=== PATIENT | female | born 1945 | race Caucasian/White ===

== ENCOUNTER 2023-10-09 11:16 | Inpatient (IN) | payer OTHER ==
[~2023-10-09] VITALS: Ht 157.5 cm; Wt 57.8 kg
[2023-10-09] MEDS ORDERED: iohexoL 350 mgI/mL, 100 ML INFUS..BTL IV ONE (11:23)
[2023-10-09 11:30] VITALS: BP_SYST 134; PULSE 68; RESP 16; TEMP 98.3; O2SAT 98
[2023-10-09 11:57] LABS: BASOPHILS % (AUTO) 0.7 % (0.0-2.0); EOSINOPHILS % (AUTO) 0.9 % (0.0-4.0); HEMATOCRIT 30.5 % (36-48); HEMOGLOBIN 10.6 g/dL (12.0-16.0); LYMPHOCYTES # (AUTO) 0.5 K/uL (1.0-5.5); MEAN CORPUSCULAR HEMOGLOBIN 33 pg (27-31); MEAN CORPUSCULAR HGB CONC 35 % (32-36); MEAN CORPUSCULAR VOLUME 94 fL (79.0-98.0); MONOCYTES # (AUTO) 0.3 K/uL (0.0-1.0); MONOCYTES % (AUTO) 7.5 % (1.7-9.3); NEUTROPHILS # (AUTO) 2.8 K/uL (1.8-7.7); NEUTROPHILS % (AUTO) 76.9 % (40.0-70.0); PLATELET COUNT (AUTO) 237 K/uL (130-430); RED BLOOD CELL COUNT(AUTO) 3.25 MIL/uL (4.2-6.2); RED CELL DISTRIBUTION WIDTH 13.9 % (9.0-15.0); WHITE BLOOD COUNT (AUTO) 3.7 K/uL (4.8-10.8)
[2023-10-09 12:15] LABS: INR 1.2 (0.8-1.2); PROTHROMBIN TIME 12.1 SECS (9.5-12.5)
[2023-10-09 12:31] LABS: ALANINE AMINOTRANSFERASE 49 U/L (12-78); ALBUMIN 2.9 g/dL (3.4-4.8); ANION GAP 7 (5-15); ASPARTATE AMINOTRANSFERASE 32 U/L (10-37); BILIRUBIN,DIRECT 0.1 mg/dL (0.0-0.3); CALCIUM 8.8 mg/dL (8.4-11.0); CARBON DIOXIDE 29 mmol/L (23-29); CHLORIDE 101 mmol/L (98-107); CREATINE KINASE, TOTAL 113 U/L (26-192); CREATININE 0.65 mg/dL (0.55-1.30); GLUCOSE 98 mg/dL (74-106); SODIUM SERUM 137 mmol/L (136-145); TOTAL BILIRUBIN 0.6 mg/dL (0.0-1.0); TOTAL PROTEIN, SERUM 6.3 g/dL (6.4-8.3); UREA NITROGEN, BLOOD 13 mg/dL (8-21)
[2023-10-09 12:32] LABS: ALCOHOL, BLOOD < 3 mg/dL (<10)
[2023-10-09] MEDS: ASPIRIN 81 MG TABLET(ECOTRIN) PO ONE (13:56)
[2023-10-09 14:18] LABS: BARBITURATE, URINE NEGATIVE (NEG <=200); BENZODIAZEPINE, URINE NEGATIVE (NEG <=150); CANNABINOID, URINE NEGATIVE (NEG <=50); COCAINE, URINE NEGATIVE (NEG <=150); METHAMPHETAMINES SCREEN,URINE NEGATIVE (NEG <=500); OPIATE, URINE NEGATIVE (NEG <=100); PHENCYCLIDINE SCREEN,URINE NEGATIVE (NEG <=25); UR TRICYCLIC ANTIDEPRESSANTS NEGATIVE (NEG <=300); URINE AMPHETAMINE NEGATIVE (NEG <=500); URINE METHADONE NEGATIVE (NEG <=200); URINE OXYCODONE SCREEN NEGATIVE (NEG <=100)
[2023-10-09] MEDS ORDERED: MUPIROCIN 2% TOPICAL OINTMENT 22 GM NS PRN (14:30)
[2023-10-09] MEDS ORDERED: ZOLPIDEM TARTRATE 5 MG TABLET PO PRN (14:30)
[2023-10-09] MEDS ORDERED: LORazepam 2 MG/ML VIAL IVP PRN (14:30)
[2023-10-09] MEDS ORDERED: NALOXONE HCL 2 MG/2 ML SYR IVP PRN ×2 (14:30)
[2023-10-09] MEDS ORDERED: ONDANSETRON HCL 4 MG/2 ML VIAL IVP PRN (14:30)
[2023-10-09] MEDS ORDERED: ACETAMINOPHEN 500 MG TABLET PO PRN (14:30)
[2023-10-09] MEDS ORDERED: MORPHINE 2 MG/ML INJ. SYRINGE IVP PRN ×2 (14:30)
[2023-10-09] MEDS: NACL 0.9% 1,000 ML IV SCH (15:02)
[2023-10-09 15:20] VITALS: BP_SYST 98; PULSE 64; RESP 18; TEMP 98; O2SAT 98
[2023-10-09 16:20] VITALS: BP_SYST 98; PULSE 64; RESP 18; TEMP 98; O2SAT 98
[2023-10-09 20:00] VITALS: BP_SYST 98; PULSE 54; RESP 18; TEMP 97.9; O2SAT 97
[2023-10-10 00:25] VITALS: BP_SYST 93; PULSE 60; RESP 15; TEMP 97.2; O2SAT 99
[2023-10-10 04:57] LABS: BASOPHILS % (AUTO) 1.1 % (0.0-2.0); EOSINOPHILS # (AUTO) 0.1 K/uL (0.0-0.4); EOSINOPHILS % (AUTO) 2.4 % (0.0-4.0); HEMATOCRIT 28.7 % (36-48); HEMOGLOBIN 10.2 g/dL (12.0-16.0); LYMPHOCYTES # (AUTO) 0.8 K/uL (1.0-5.5); MEAN CORPUSCULAR HEMOGLOBIN 33 pg (27-31); MEAN CORPUSCULAR HGB CONC 36 % (32-36); MEAN CORPUSCULAR VOLUME 93 fL (79.0-98.0); MONOCYTES # (AUTO) 0.4 K/uL (0.0-1.0); MONOCYTES % (AUTO) 9.4 % (1.7-9.3); NEUTROPHILS # (AUTO) 2.5 K/uL (1.8-7.7); NEUTROPHILS % (AUTO) 66.1 % (40.0-70.0); PLATELET COUNT (AUTO) 236 K/uL (130-430); RED CELL DISTRIBUTION WIDTH 13.8 % (9.0-15.0); WHITE BLOOD COUNT (AUTO) 3.8 K/uL (4.8-10.8)
[2023-10-10 05:00] LABS: ANION GAP 8 (5-15); CALCIUM 8.5 mg/dL (8.4-11.0); CARBON DIOXIDE 28 mmol/L (23-29); CHLORIDE 104 mmol/L (98-107); CREATININE 0.45 mg/dL (0.55-1.30); GLUCOSE 75 mg/dL (74-106); POTASSIUM 3.4 mmol/L (3.5-5.1); SODIUM SERUM 140 mmol/L (136-145); UREA NITROGEN, BLOOD 9 mg/dL (8-21)
[2023-10-10 08:00] VITALS: BP_SYST 90; PULSE 55; RESP 16; TEMP 98; O2SAT 97
[2023-10-10] MEDS ORDERED: IPRATROPIUM/ALBUTEROL SULFATE 3 ML AMPUL.NEB (DUONEB) INH PRN (09:00)
[2023-10-10] MEDS: POTASSIUM CHLORIDE 20 MEQ TABLET.ER PO PRN (09:03)
[2023-10-10] MEDS: ASPIRIN 81 MG TABLET(ECOTRIN) PO SCH (09:03)
[2023-10-10] MEDS: MAGNESIUM SULFATE 50 ML IV PRN (09:04)
[2023-10-10 09:13] VITALS: BP_SYST 93; PULSE 60; O2SAT 99
[2023-10-10 12:00] VITALS: BP_SYST 95; PULSE 81; RESP 16; TEMP 97.6; O2SAT 96
[2023-10-10] MEDS: ACETAMINOPHEN 500 MG TABLET PO PRN (12:56)
[2023-10-10] MEDS: CLOPIDOGREL BISULFATE 75 MG TABLET PO SCH (12:56)
[2023-10-10] MEDS: PIPERACILLIN/TAZO 3.375 GM in D5W 50 ML IV SCH (12:57)
[2023-10-10 16:36] VITALS: BP_SYST 106; PULSE 87; RESP 16; TEMP 97.8; O2SAT 98
[2023-10-10 20:00] VITALS: BP_SYST 108; PULSE 64; RESP 16; TEMP 98.2; O2SAT 95
[2023-10-10 23:22] LABS: BILIRUBIN,URINE NEGATIVE (NEGATIVE); BLOOD, URINE 2+ (NEGATIVE); COLOR,URINE YELLOW (YELLOW); GLUCOSE,URINE NEGATIVE (NEGATIVE); KETONES,URINE NEGATIVE (NEGATIVE); LEUKOCYTE ESTERASE ,URINE NEGATIVE (NEGATIVE); NITRITE, URINE NEGATIVE (NEGATIVE); PH,URINE 7.5 (5.0-8.0); PROTEIN URINE NEGATIVE (NEGATIVE)
[2023-10-11] VITALS (7 sets, daily range): BP systolic 97–123; PULSE 70–137; RESP 16–18; TEMP 97.9–98.4; O2SAT 95–96
[2023-10-11 00:02] LABS: BACTERIA,URINE None Seen /HPF (None Seen); CLARITY/URINE HAZY (CLEAR); WBC,URINE 0-3 /HPF (0-3)
[2023-10-11 05:14] LABS: ANION GAP 6 (5-15); CALCIUM 8.1 mg/dL (8.4-11.0); CARBON DIOXIDE 28 mmol/L (23-29); CHLORIDE 105 mmol/L (98-107); CREATININE 0.54 mg/dL (0.55-1.30); GLUCOSE 78 mg/dL (74-106); POTASSIUM 3.9 mmol/L (3.5-5.1); SODIUM SERUM 139 mmol/L (136-145); UREA NITROGEN, BLOOD 11 mg/dL (8-21)
[2023-10-11 05:26] LABS: BASOPHILS % (AUTO) 0.5 % (0.0-2.0); EOSINOPHILS # (AUTO) 0.1 K/uL (0.0-0.4); EOSINOPHILS % (AUTO) 1.7 % (0.0-4.0); HEMATOCRIT 28.4 % (36-48); HEMOGLOBIN 9.9 g/dL (12.0-16.0); LYMPHOCYTES # (AUTO) 0.8 K/uL (1.0-5.5); LYMPHOCYTES % (AUTO) 16.7 % (20.5-51.5); MEAN CORPUSCULAR HEMOGLOBIN 32 pg (27-31); MEAN CORPUSCULAR HGB CONC 35 % (32-36); MEAN CORPUSCULAR VOLUME 93 fL (79.0-98.0); MONOCYTES # (AUTO) 0.4 K/uL (0.0-1.0); MONOCYTES % (AUTO) 8.1 % (1.7-9.3); NEUTROPHILS # (AUTO) 3.7 K/uL (1.8-7.7); PLATELET COUNT (AUTO) 233 K/uL (130-430); RED BLOOD CELL COUNT(AUTO) 3.07 MIL/uL (4.2-6.2); RED CELL DISTRIBUTION WIDTH 13.6 % (9.0-15.0)
[2023-10-11] MEDS: ATORVASTATIN 20 MG TABLET PO SCH (09:00)
[2023-10-12] VITALS: BP_SYST 137; PULSE 66; RESP 18; TEMP 98; O2SAT 66
[2023-10-12 05:14] LABS: BASOPHILS % (AUTO) 0.6 % (0.0-2.0); EOSINOPHILS # (AUTO) 0.2 K/uL (0.0-0.4); EOSINOPHILS % (AUTO) 3.6 % (0.0-4.0); HEMOGLOBIN 10.9 g/dL (12.0-16.0); LYMPHOCYTES # (AUTO) 0.9 K/uL (1.0-5.5); LYMPHOCYTES % (AUTO) 20.6 % (20.5-51.5); MEAN CORPUSCULAR HEMOGLOBIN 33 pg (27-31); MEAN CORPUSCULAR HGB CONC 35 % (32-36); MEAN CORPUSCULAR VOLUME 94 fL (79.0-98.0); MONOCYTES # (AUTO) 0.4 K/uL (0.0-1.0); MONOCYTES % (AUTO) 9.4 % (1.7-9.3); NEUTROPHILS # (AUTO) 2.8 K/uL (1.8-7.7); NEUTROPHILS % (AUTO) 65.8 % (40.0-70.0); PLATELET COUNT (AUTO) 242 K/uL (130-430); RED BLOOD CELL COUNT(AUTO) 3.31 MIL/uL (4.2-6.2); RED CELL DISTRIBUTION WIDTH 13.9 % (9.0-15.0); WHITE BLOOD COUNT (AUTO) 4.2 K/uL (4.8-10.8)
[2023-10-12 06:00] LABS: ALANINE AMINOTRANSFERASE 44 U/L (12-78); ALBUMIN 2.6 g/dL (3.4-4.8); ANION GAP 10 (5-15); ASPARTATE AMINOTRANSFERASE 31 U/L (10-37); CALCIUM 8.3 mg/dL (8.4-11.0); CARBON DIOXIDE 26 mmol/L (23-29); CHLORIDE 105 mmol/L (98-107); CREATININE 0.54 mg/dL (0.55-1.30); GLUCOSE 92 mg/dL (74-106); POTASSIUM 3.6 mmol/L (3.5-5.1); SODIUM SERUM 141 mmol/L (136-145); TOTAL BILIRUBIN 0.6 mg/dL (0.0-1.0); TOTAL PROTEIN, SERUM 5.9 g/dL (6.4-8.3); UREA NITROGEN, BLOOD 8 mg/dL (8-21)
[2023-10-12 08:30] VITALS: BP_SYST 147; PULSE 76; RESP 16; TEMP 97.6; O2SAT 97
[2023-10-12 12:00] VITALS: BP_SYST 113; PULSE 60; RESP 20; TEMP 98; O2SAT 97
[2023-10-12] MEDS ORDERED: LISI20TA30 PO (12:41)
[2023-10-12] MEDS ORDERED: DOCU-144 PO (12:41)
[2023-10-12] MEDS ORDERED: ESCI10TA PO (12:41)
[2023-10-12] MEDS ORDERED: NOR10 PO (12:41)
[2023-10-12] MEDS ORDERED: ATOR40TA68 PO (12:41)
[2023-10-12] MEDS ORDERED: CLOP75TA32 PO (12:41)
[2023-10-12 16:00] VITALS: BP_SYST 116; PULSE 64; RESP 16; TEMP 97.8; O2SAT 97
[2023-10-12] MEDS: DOCUSATE SODIUM 100 MG CAPSULE PO PRN (16:17)
[2023-10-12 20:00] VITALS: BP_SYST 112; PULSE 62; RESP 20; TEMP 97.8; O2SAT 18; O2SAT 97
[2023-10-13] VITALS (8 sets, daily range): BP systolic 97–126; PULSE 56–84; RESP 16–20; TEMP 97.3–98.6; O2SAT 96–99
[2023-10-13 04:40] LABS: BASOPHILS % (AUTO) 0.6 % (0.0-2.0); EOSINOPHILS # (AUTO) 0.2 K/uL (0.0-0.4); EOSINOPHILS % (AUTO) 4.3 % (0.0-4.0); HEMATOCRIT 30.7 % (36-48); HEMOGLOBIN 10.7 g/dL (12.0-16.0); LYMPHOCYTES % (AUTO) 24.2 % (20.5-51.5); MEAN CORPUSCULAR HEMOGLOBIN 33 pg (27-31); MEAN CORPUSCULAR HGB CONC 35 % (32-36); MEAN CORPUSCULAR VOLUME 94 fL (79.0-98.0); MONOCYTES # (AUTO) 0.4 K/uL (0.0-1.0); NEUTROPHILS # (AUTO) 2.6 K/uL (1.8-7.7); NEUTROPHILS % (AUTO) 60.9 % (40.0-70.0); PLATELET COUNT (AUTO) 234 K/uL (130-430); RED BLOOD CELL COUNT(AUTO) 3.26 MIL/uL (4.2-6.2); RED CELL DISTRIBUTION WIDTH 13.9 % (9.0-15.0); WHITE BLOOD COUNT (AUTO) 4.3 K/uL (4.8-10.8)
[2023-10-13 04:50] LABS: ANION GAP 8 (5-15); CALCIUM 8.4 mg/dL (8.4-11.0); CARBON DIOXIDE 27 mmol/L (23-29); CHLORIDE 106 mmol/L (98-107); CREATININE 0.53 mg/dL (0.55-1.30); GLUCOSE 90 mg/dL (74-106); POTASSIUM 3.9 mmol/L (3.5-5.1); SODIUM SERUM 141 mmol/L (136-145); UREA NITROGEN, BLOOD 11 mg/dL (8-21)
== END 2023-10-13 21:50 | DRG 177 ==
LOC: SED 11:16 → STU 13:17 → SMU 10-12 17:00
PROVIDERS: ADMIT General Practice; ATTEND General Practice
DX: J69.0 Pneumonitis due to inhalation of food and vomit (principal); E43 Unspecified severe protein-calorie malnutrition; G93.41 Metabolic encephalopathy; G45.9 Transient cerebral ischemic attack, unspecified; I69.351 Hemiplegia and hemiparesis following cerebral infarction affecting right dominant side; G90.9 Disorder of the autonomic nervous system, unspecified; E87.6 Hypokalemia; R00.1 Bradycardia, unspecified; Z79.02 Long term (current) use of antithrombotics/antiplatelets; Z68.23 Body mass index [BMI] 23.0-23.9, adult; Z79.899 Other long term (current) drug therapy
CPT/HCPCS: 36415; 70450-TC; 70496; 70498; 71045; 80048; 80053; 80076; 80307; 81000; 81001; 81015; 82550; 83037; 83605; 83735; 83880; 84484; 85025; 85610; 85730; 87081; 92610-GN; 93005; 93306; 94070; 97110-GP; 97112-GO; 97112-GP; 97116-GP; 97530-GO; 97530-GP; 97535-GO; 99285; G0378; G0482; J2543; J3475; J7060; Q9967